=== PATIENT | male | born 1955 | race Caucasian/White ===

== ENCOUNTER 2016-12-22 09:50 | Emergency (ER) | payer OTHER ==
[~2016-12-22 09:50] MED LIST: CIPRO 500MG (E500 MG PO
[2016-12-22 09:57] VITALS: BP 181/73
--- NOTE | 2016-12-22 10:01 | ED ANIMAL BITE/WOUND CHECK ---
History of Present Illness General Chief Complaint: Suture Removal/Wound Recheck Stated Complaint: STAPLE REMOVAL (HEAD) Source: patient, friend Exam Limitations: no limitations Vital Signs & Intake/Output Vital Signs & Intake/Output Vital Signs Date Time Temp Pulse Resp B/P Pulse O2 O2 Flow FiO2 Ox Delivery Rate 12/22 0957 97.8 80 20 181/73 98 Room Air Allergies Coded Allergies: NO KNOWN ALLERGIES (01/05/15) Reconcile Medications Ciprofloxacin (Cipro) 500 MG TABLET 1 TAB PO BID UTI Triage Nurses Notes Reviewed? yes HPI: 1 week status post staple removal to his scalp, posterior aspect after fall done by [facility]. He is here for staple removal. There are no complaints. (GABBY MEZA) Past History Travel History Traveled to [place] past 21 day No Medical History Any Pertinent Medical History? see below for history Neurological: MR Surgical History Surgical History: non-contributory Psychosocial History Who do you live with Brother What is your primary language Mongolian Family History Hx Contributory? No (GABBY MEZA) Review of Systems Review of Systems Constitutional: Reports: see HPI. EENTM: Reports: see HPI. Respiratory: Reports: no symptoms. Cardiovascular: Reports: no symptoms. GI: Reports: no symptoms. Genitourinary: Reports: no symptoms. Musculoskeletal: Reports: no symptoms. Skin: Reports: no symptoms. Neurological/Psychological: Reports: no symptoms. Hematologic/Endocrine: Reports: no symptoms. Immunologic/Allergic: Reports: no symptoms. All Other Systems: Reviewed and Negative (GABBY MEZA) Physical Exam Physical Exam General Appearance: well developed/nourished Comments: Well-developed well-nourished no apparent distress. HEENT: Posterior scalp with a irregular laceration with large amounts of scab that is healing well. No erythema no swelling, no discharge., extraocular motion intact Neck: Supple, no lymphadenopathy Back: Nontender Respiratory: No respiratory distress Extremities: No edema, full range of motion Neuro: Alert and oriented x3 Psych: Mood affect normal, normal memory normal judgment. Skin: Warm and dry, no rash on exposed skin (GABBY MEZA) Progress Differential Diagnosis: abscess, cellulitis Plan of Care: Approximately 6 rene removed without difficulty. Patient tolerated well without complications. (GABBY MEZA) Departure Departure Disposition: HOME OR SELF CARE Condition: Stable Clinical Impression Primary Impression: Removal of staple Referrals: CECILIO MONGE,SERGO Sr (PCP/Family) Additional Instructions: watch for any signs of infection : redness, swelling, pain, discharge. return with any concerns. Departure Forms: Customer Survey General Discharge Information (DEEPTHI CORTES,GABBY) PA/STEAM GIGGER Co-Sign Statement Statement: ED Attending supervision documentation- [] I saw and evaluated the patient. I have also reviewed all the pertinent lab results and diagnostic results. I agree with the findings and the plan of care as documented in the PA's/STEAM GIGGER's documentation. [X] I have reviewed the ED Record and agree with the PA's/STEAM GIGGER's documentation. [] Additions or exceptions (if any) to the PAs/STEAM GIGGER's note and plan are summarized below: [] (KANDI MELO DO
== END 2016-12-22 10:14 ==
LOC: ERH 09:50
DX: S01.01XD Laceration without foreign body of scalp, subsequent encounter (principal)
CPT/HCPCS: 99281